=== PATIENT | male | born 1975 | race Caucasian/White ===

== ENCOUNTER 2017-09-04 06:56 | Day surgery (SDC) | payer BC ==
[2017-09-04] MEDS: NS 1,000 ML IV (07:00)
[2017-09-04] MEDS ORDERED: LIDOCAINE 2% INJ 100 MG/5 ML SYRINGE As Ordered (07:09)
[2017-09-04] MEDS ORDERED: PROPOFOL 200 MG/20 ML VIAL As Ordered ×2 (07:09→07:41)
== END 2017-09-04 08:22 | disposition home or self-care (01) ==
LOC: M OPP 06:56
DX: K62.5 Hemorrhage of anus and rectum (principal); K64.0 First degree hemorrhoids; I10 Essential (primary) hypertension; M54.5 Low back pain; Z87.891 Personal history of nicotine dependence
CPT/HCPCS: 45378

== ENCOUNTER → 2017-11-20 | Outpatient (REF) | payer BC ==
[2017-11-20 18:39] LABS: TESTOSTERONE 333 NG/DL (241-827)
== END ==
LOC: M LAB REF 16:56
DX: F52.21 Male erectile disorder (principal)
CPT/HCPCS: 84403

== ENCOUNTER → 2018-03-20 | Outpatient (CLI) | payer BC ==
--- NOTE | 2018-03-20 10:22 | REP ---
Chest two views HISTORY: Cough Comparison: None The lungs are clear. The heart is normal in size. The pulmonary vasculature is normal in appearance. The bony structure is intact. IMPRESSION: No acute disease. Electronically Signed by Grant Gonzales MD 03/20/2018 10:14 A
== END ==
LOC: M WUC 09:54
PROVIDERS: ATTEND Nurse Practitioner Family
DX: R05 Cough (principal)

== ENCOUNTER → 2018-09-04 | Outpatient (REF) | payer BC | LOC: M LAB REF 12:15 | PROVIDERS: ATTEND Nurse Practitioner Family | DX: L03.211 Cellulitis of face (principal) ==

== ENCOUNTER → 2019-01-23 | Outpatient (REF) | payer BC ==
[2019-01-23 16:36] LABS: MUCUS, URINE SMALL AMOUNT (NEGATIVE); WBC, URINE NONE SEEN /hpf (0-3)
== END ==
LOC: M LAB REF 16:12
PROVIDERS: ATTEND Nurse Practitioner Adult Health
DX: R31.9 Hematuria, unspecified (principal)

== ENCOUNTER 2019-08-15 18:21 | Emergency (ER) | payer BC ==
[~2019-08-15] VITALS: Ht 177.8 cm; Wt 85.4 kg
[2019-08-15] MEDS ORDERED: FAMO1TAB25 PO (18:28)
[2019-08-15] MEDS ORDERED: TIZA4TAB4 (18:28)
[2019-08-15] MEDS ORDERED: SOOL1CRE (18:28)
[2019-08-15] MEDS ORDERED: AMLO2.5T3 (18:28)
[2019-08-15] MEDS ORDERED: ONDANSETRON 4MG/2ML VIAL IV ONE (18:45)
[2019-08-15] MEDS ORDERED: NS 1,000 ML IV ONE (18:45)
[2019-08-15] MEDS ORDERED: KETOROLAC 30 MG/ML 1ML VIAL IV ONE (18:45)
[2019-08-15] MEDS ORDERED: PANTOPRAZOLE 40MG VIAL (C9113 PER 1) IV ONE (18:45)
[2019-08-15 19:02] LABS: BASO # 0.1 10^3/uL (0.0-0.2); BASO % 0.4 % (0.0-1.0); EOS # 0.1 10^3/uL (0.0-0.5); EOS % 1.2 % (0.0-3.0); HEMATOCRIT 47.2 % (42.0-52.0); HEMOGLOBIN 16.1 g/dl (13.5-17.5); LYMPH # 1.1 10^3/uL (1.5-5.0); LYMPH % 9.6 % (24.0-44.0); MEAN CORPUSCULAR HEMOGLOBIN 29.7 pg (27.0-33.0); MEAN CORPUSCULAR HGB CONC 34.1 g/dl (32.0-36.5); MEAN CORPUSCULAR VOLUME 86.9 fl (80.0-96.0); MONO # 0.7 10^3/uL (0.0-0.8); MONO % 6.4 % (0.0-5.0); NEUTROPHILS # 9.4 10^3/uL (1.5-8.5); NEUTROPHILS % 82.1 % (36.0-66.0); PLATELET COUNT, AUTOMATED 190 10^3/uL (150-450); RED BLOOD COUNT 5.43 10^6/uL (4.30-6.10); WHITE BLOOD COUNT 11.5 10^3/uL (4.0-10.0)
[2019-08-15 19:53] LABS: INR 1.12; PROTHROMBIN TIME 14.1 SECONDS (11.8-14.0)
[2019-08-15 19:54] LABS: PARTIAL THROMBOPLASTIN TIME 26.1 SECONDS (25.0-38.4)
[2019-08-15] MEDS ORDERED: MORPHINE 4 MG/ML 1ML VIAL/SYRINGE (J2270) IV ONE (20:00)
[2019-08-15 20:08] LABS: ALBUMIN 3.8 GM/DL (3.2-5.2); ALT/SGPT 30 U/L (12-78); BILIRUBIN,DIRECT 0.2 MG/DL (0.0-0.2); BILIRUBIN,TOTAL 0.7 MG/DL (0.2-1.0); BLOOD UREA NITROGEN 10 MG/DL (7-18); CALCIUM LEVEL 8.9 MG/DL (8.5-10.1); CARBON DIOXIDE LEVEL 27 MEQ/L (21-32); CHLORIDE LEVEL 107 MEQ/L (98-107); CK-MB VALUE MASS 3.1 NG/ML (<3.6); CPK CREATINE PHOSPHOKINASE 90 U/L (39-308); CREATININE FOR GFR 1.05 MG/DL (0.70-1.30); GLOMERULAR FILTRATION RATE > 60.0 (>60); GLUCOSE, FASTING 104 MG/DL (70-100); LIPASE 93 U/L (73-393); MB/CK RELATIVE INDEX 3.44 (< OR =4); POTASSIUM SERUM 3.9 MEQ/L (3.5-5.1); SODIUM LEVEL 140 MEQ/L (136-145); TOTAL PROTEIN 7.3 GM/DL (6.4-8.2); TROPONIN I < 0.02 NG/ML (< 0.10)
[2019-08-15] MEDS ORDERED: ISOVUE-370 76% 100ML VIAL As Ordered ONE (20:45)
[2019-08-15] MEDS ORDERED: GI COCKTAIL 50ML BTL(HYOSCYAMINE/MAALOX/LIDOCAINE VISCOUS)(1:3:1) PO ONE (20:45)
--- NOTE | 2019-08-15 21:17 | REPVR ---
PROCEDURE INFORMATION: Exam: CT Abdomen And Pelvis With Contrast Exam date and time: 08/15/2019 8:57 PM Age: 44 years old Clinical indication: Abdominal pain; Localized; Left upper quadrant (luq); Additional info: Left upper abdominal pain TECHNIQUE: Imaging protocol: Computed tomography of the abdomen and pelvis with intravenous contrast. Radiation optimization: All CT scans at this facility use at least one of these dose optimization techniques: automated exposure control; mA and/or kV adjustment per patient size (includes targeted exams where dose is matched to clinical indication); or iterative reconstruction. Contrast material: ISOVUE 370; Contrast volume: 100 ml; Contrast route: IV; COMPARISON: No relevant prior studies available. FINDINGS: Lungs: Minimal atelectasis or scar in the left posterior costophrenic sulcus. Liver: The liver attenuation is 76 Hounsfield units and the spleen is 111 Hounsfield units. Gallbladder and bile ducts: Normal. No calcified stones. No ductal dilation. Pancreas: Normal. No ductal dilation. Spleen: Normal. No splenomegaly. There is a splenic calcification. Adrenals: Normal. No mass. Kidneys and ureters: Normal. No hydronephrosis. Stomach and bowel: Borderline to mild small-bowel distention with fluid and air-fluid levels in the lumen. The distal ileum is contracted and findings are consistent with small-bowel obstruction. There is a tapering transition in the right lower quadrant with some fluid adjacent to the area of greatest transition which may reflect an adhesion or enteritis. Appendix: A normal appendix is seen. Intraperitoneal space: Mild free fluid in the pelvis with a Hounsfield measurement of 12. Vasculature: Unremarkable. No abdominal aortic aneurysm. Lymph nodes: Unremarkable. No enlarged lymph nodes. Bladder: Unremarkable as visualized. Reproductive: Unremarkable as visualized. Bones/joints: Unremarkable. No acute fracture. Soft tissues: Unremarkable. IMPRESSION: 1. Mild small-bowel obstruction with a tapering transition in the lower right abdomen with greatest adjacent fluid and induration in the segments of the right lower quadrant. Findings may reflect an adhesion although may reflect enteritis. 2. Mild free fluid in the pelvis which is nonspecific but unusual in a male and may be reactive. 3. Mild mild fatty infiltration of the liver. Electronically signed by: Rowdy Vasquez On 08/15/2019 21:17:51 PM
[2019-08-15] MEDS ORDERED: ONDA4TAB6 PO (23:07)
[2019-08-15] MEDS ORDERED: DICY10CA13 PO (23:07)
[2019-08-15 23:09] VITALS: BP 128/72
[2019-08-15] MEDS ORDERED: DICYCLOMINE 10 MG CAP PO ONE (23:15)
[2019-08-15] MEDS ORDERED: ONDANSETRON 4 MG ORAL DISINTEGRATING TAB PO ONE (23:15)
--- NOTE | 2019-08-16 07:22 | ED PDOC ---
Post-Departure Follow-Up dr ibarra faxed formal report of ct abd/p for fu Natalia Sanchez MD August 16, 2019 07:22
--- NOTE | 2019-08-16 07:42 | ER ---
DATE OF CONSULTATION: 08/15/2019 REASON FOR CONSULTATION: Abdominal pain with vomiting and reportedly abnormal CT scan. HISTORY OF THE PRESENT ILLNESS: The patient is a 44-year-old man who presented to the emergency department for evaluation of abdominal pain with some nausea and vomiting. He presented to the emergency department at approximately 6:20 on the evening of 08/15/2019. He reported that he had awakened at about 4 o'clock in the morning on 08/15/2019. He noted some abdominal discomfort particularly in the left upper quadrant as well as some reflux. He took some Tums and a famotidine and propped himself up with pillows. He was unable to go back to sleep. He noted during the morning and into the day that he had some occasional retching or dry heaves but never really had any productive vomiting. At about 4 o'clock he had some bites of a cookie, which was about his only food for the day. He did travel to [place] in hopes of helping a family member move but found he was too uncomfortable to participate. He apparently had a nap in the afternoon at about 1430 hours, but subsequently noted some retching and again some dry heaves. He continued to have some abdominal pain mostly in the left side of the abdomen and left upper quadrant. He got into the car to come to the emergency department and on the way to the emergency room (ER) he actually developed some nausea and had an episode of significant productive vomiting. In the emergency department, he noted persistent pain and aching in the upper abdomen. He was evaluated with some laboratory studies and then had a CT scan of the abdomen and pelvis obtained. The CT scan was interpreted by the radiologist as possibly showing some changes of small bowel obstruction and I was contacted to evaluate the patient regarding the possibility of a small bowel obstruction. The patient currently reports that his pain was about a 7-8/10 and it is now much reduced at about 2-3. He has had no vomiting since coming into the emergency department. He denies any history of fevers or chills. He reports he did take a temperature once at home and it was 97.3. He reports that no one else has been sick at home. He denies any unusual foods on Saturday. MEDICATIONS: The patient's usual medications include: - amlodipine 2.5 mg - tizanidine 4 mg by mouth as needed - ivermectin cream to the face as directed - Pepcid 10 mg by mouth daily as needed ALLERGIES: Reported to [facility]. Surgical history is significant for a lymph node biopsy of the right axilla 20 years ago. About 10 years ago he had an open left inguinal hernia repair with mesh combined with a repair of an umbilical hernia. His medical history is significant for some hypertension and a facial rash with a history of some reflux symptoms. Family history and social history are noncontributory. Review of systems reveals no history of chest pain or palpitations. He reports that he does not have prior similar symptoms. He has had no diagnosis of inflammatory bowel disease. He denies any history of peptic ulcer disease, hepatitis or pancreatitis. He denies any dysuria or hematuria. He had, had some soft bowel movements earlier in the day but no diarrhea and he has had no bleeding. Physical exam reveals a pleasant gentleman lying quietly on the stretcher in the emergency department. His most recent most recent vital signs showed him to be afebrile with a pulse of 58, respiratory rate of 18 and a blood pressure of 124/75. He is alert and oriented. He sounds slightly hoarse. Sclerae are anicteric. Skin is warm and dry. Heart exam shows a regular rate and rhythm and he is not tachycardiac. The lungs are clear to auscultation bilaterally. The patient is able to move from lying to sitting and sitting to lying position without apparent discomfort. The abdomen is flat. He has active bowel sounds in all four quadrants. The abdomen is nondistended. The abdomen is soft throughout and there is no appreciable tenderness throughout the abdomen. He has palpable posterior tibial pulses bilaterally with no peripheral edema. Laboratory studies showed a white count of 12, hemoglobin of 16, hematocrit of 47, and a platelet count of 190,000. Differential count showed 82% neutrophils, 10% lymphocytes, and 6% monocytes. His chemistry profile showed a sodium of 140, potassium 3.9, chloride 107, CO2 of 27, BUN of 10, creatinine 1, and a glucose of 104. Liver function tests were entirely normal. Cardiac injury profile was negative and his lipase was 93. Coags were unremarkable. Urinalysis showed 2+ blood on the dipstick but zero white cells and 2 red cells per high-power field on the microscopic. Serology showed a negative COVID-19. He had a CT scan of the abdomen and pelvis done with IV contrast. I reviewed the images and report personally. The radiologist had suggested that there was some "borderline to mild small bowel distension with fluid and air fluid levels in the lumen. The distal lumen is contracted and findings are consistent with small bowel obstruction." There was a small amount of free fluid noted in the pelvis as well. On my review of the imaging, he has some loops of small bowel that I would describe as full but not significantly distended or enlarged. These appear to be more proximal. More distal small bowel is smaller and decompressed. I do not see any inflammatory changes. I see no discrete obstructive pattern. His appendix is well seen and normal as is the gallbladder. IMPRESSION: The patient has had a 1 day history of abdominal discomfort with some frequent retching and finally some significant vomiting on the way to the hospital. He has been having bowel movements today. He is feeling much better currently. He has active bowel sounds with a soft abdomen that is nontender. His history is not consistent with a bowel obstruction and I think is more typical for some form of gastroenteritis. PLAN: I counseled the patient that I do not believe he requires hospital admission. If he would feel more comfortable staying at the hospital for a time to ensure that his symptoms have resolved I would be happy to place him on observation but I think he would be safe to go home. I discussed with him that he should probably just fast for a short time and then begin with some sips of clear liquids or ice chips and gradually advance his diet. I told him that if his pain recurs significantly he can return to the emergency department for admission and we can then monitor him in the hospital. I do not believe any outpatient followup is absolutely necessary unless his symptoms do not remit in the next day. RADHA
--- NOTE | 2019-08-16 21:03 | ECGEPIP ---
[facility] - ED Test Date: 2019-08-15 Pat Name: LANA DELACRUZ Department: Room: - Gender: Male Integrity Specialist: sasha : 1975 Requested By: ALISIA CERVANTES Order Number: [id number] Reading MD: Aby Rodriguez Measurements Intervals [place] Rate: 65 P: 64 AK: 178 QRS: 33 QRSD: 81 T: 51 QT: 383 QTc: 399 Interpretive Statements SINUS RHYTHM NSTTW abnormalities NO PRIOR Electronically Signed on 08-16-2019 21:03:36 EDT by Aby Rodriguez
== END 2019-08-15 23:17 | disposition home or self-care (01) ==
LOC: M ED 18:21
DX: R10.84 Generalized abdominal pain (principal); R11.2 Nausea with vomiting, unspecified; I10 Essential (primary) hypertension; Z79.899 Other long term (current) drug therapy; Z88.1 Allergy status to other antibiotic agents; Z88.2 Allergy status to sulfonamides
CPT/HCPCS: 74177; 80048; 80076; 81001; 82550; 82553; 83690; 84484; 85025; 85610; 85730; 93005; 96361; 96374; 96375; 99284; C9113; J1885; J2270; J2405; Q0162; Q9967; U0002

== ENCOUNTER → 2019-08-18 | Outpatient (CLI) | payer BC ==
[~2019-08-18] MED LIST: AMLO2.5T3; DICY10CA13 PO; FAMO1TAB25 PO; ONDA4TAB6 PO; SOOL1CRE; TIZA4TAB4
== END ==
LOC: M LAB 07:56
PROVIDERS: ATTEND Dermatology
DX: Z79.899 Other long term (current) drug therapy (principal)

== ENCOUNTER → 2019-09-17 | Outpatient (REF) | payer BC | LOC: M LAB REF 17:26 | PROVIDERS: ATTEND Dermatology | DX: L28.0 Lichen simplex chronicus (principal) ==

== ENCOUNTER → 2019-09-18 | Outpatient (CLI) | payer BC ==
[2019-09-18 17:12] LABS: BILIRUBIN,DIRECT 0.1 MG/DL (0.0-0.2); BILIRUBIN,TOTAL 0.3 MG/DL (0.2-1.0); TOTAL PROTEIN 7.4 GM/DL (6.4-8.2)
== END ==
LOC: M LAB 15:52
PROVIDERS: ATTEND Dermatology
DX: Z79.899 Other long term (current) drug therapy (principal)

== ENCOUNTER → 2019-10-22 | Outpatient (CLI) | payer BC ==
[2019-10-22 09:36] LABS: BILIRUBIN,DIRECT 0.1 MG/DL (0.0-0.2); BILIRUBIN,TOTAL 0.4 MG/DL (0.2-1.0); CHOLESTEROL RISK RATIO 4.975 (<5); TOTAL PROTEIN 7.3 GM/DL (6.4-8.2)
== END ==
LOC: M LAB 08:31
PROVIDERS: ATTEND Dermatology
DX: Z79.899 Other long term (current) drug therapy (principal)

== ENCOUNTER → 2020-01-15 | Outpatient (REF) | payer BC | LOC: M LAB REF 07:38 | PROVIDERS: ATTEND Anesthesiology | DX: Z20.828 Contact with and (suspected) exposure to other viral communicable diseases (principal) ==

== ENCOUNTER → 2020-04-19 | Outpatient (REF) | payer BC | LOC: M LAB REF 16:48 | PROVIDERS: ATTEND Family Medicine | DX: M25.50 Pain in unspecified joint (principal); R53.83 Other fatigue ==

== ENCOUNTER → 2020-04-26 | Outpatient (CLI) | payer SELFPAY | LOC: M LABSMTC 11:31 | PROVIDERS: ATTEND Pediatrics | DX: Z20.822 Contact with and (suspected) exposure to COVID-19 (principal) ==

== ENCOUNTER 2020-05-30 14:15 | Emergency (ER) | payer BC ==
[~2020-05-30] VITALS: Ht 177.8 cm; Wt 86.9 kg
--- NOTE | 2020-05-30 14:51 | REP ---
INDICATION: FALL, HEAD INJ COMPARISON: None. TECHNIQUE: Axial noncontrast images from the skull base to the vertex with coronal reformations. This CT examination was performed using the following dose reduction techniques: Automated exposure control, adjustment of mA and/or kv according to the patient's size, and use of iterative reconstruction technique. FINDINGS: The ventricles, sulci, and cisterns are normal in position and appearance. Cuevas-white differentiation is maintained. No acute intracranial hemorrhage, mass/mass effect, pathology or trauma/injury. No evidence for acute infarction. No extra-axial fluid collection. Calvarium is intact. Paranasal sinuses and mastoid air cells are clear. IMPRESSION: Normal noncontrast head CT. No evidence for acute intracranial pathology or trauma/injury. <Electronically signed by Jordin Denson > 05/30/20 [id number]
--- NOTE | 2020-05-30 14:52 | REP ---
INDICATION: FALL, HEAD INJ COMPARISON: None. TECHNIQUE: Axial noncontrast images from the skull base to the thoracic inlet with coronal and sagittal re-formations This CT examination was performed using the following dose reduction techniques: Automated exposure control, adjustment of mA and/or kv according to the patient's size, and use of iterative reconstruction technique. FINDINGS: Sagittal images demonstrate mild reversal of normal lordosis along with focal degenerative change at C5-6 including marginal spurring, endplate sclerosis, disc space narrowing and small posterior disc bulge. Remainder of the examination is essentially age-appropriate. There is no evidence for acute fracture/compression injury or subluxation. Spinal canal is patent. Posterior elements and spinous processes are intact. Paravertebral soft tissues are normal. IMPRESSION: 1. Mild reversal of normal lordosis along with focal degenerative changes at C5-6. 2. No acute fracture/compression injury or subluxation. <Electronically signed by Jordin Denson > 05/30/20 [id number]
[2020-05-30 15:37] VITALS: BP 184/115
[2020-05-30] MEDS ORDERED: TRAM50TA2 PO (15:42)
[2020-05-30] MEDS ORDERED: amLODIPine 5 MG TAB PO ONE (16:00)
[2020-05-30] MEDS ORDERED: PILL CUTTER 1 EACH XX PRN (16:20)
[2020-05-30 16:37] VITALS: BP 185/115
== END 2020-05-30 16:40 | disposition left against medical advice (07) ==
LOC: M ED 14:15
DX: S09.90XA Unspecified injury of head, initial encounter (principal); V00.211A Fall from ice-skates, initial encounter; Y92.330 Ice skating rink (indoor) (outdoor) as the place of occurrence of the external cause; Y93.21 Activity, ice skating; Y99.9 Unspecified external cause status; I10 Essential (primary) hypertension; M50.322 Other cervical disc degeneration at C5-C6 level; M50.20 Other cervical disc displacement, unspecified cervical region; M48.02 Spinal stenosis, cervical region; Z87.891 Personal history of nicotine dependence; Z88.2 Allergy status to sulfonamides; Z79.899 Other long term (current) drug therapy

== ENCOUNTER → 2020-07-21 | Outpatient (CLI) | payer BC ==
[~2020-07-21] MED LIST changes: +TRAM50TA2 PO
--- NOTE | 2020-07-22 13:10 | SLEEPHOME ---
DATE: 07/21/2020 ORDERED BY: Kat Chamberlain Diagnostic home sleep testing was performed due to concern for the obstructive sleep apnea syndrome in this patient with a history of excessive somnolence and nonrestorative sleep. For testing, a nocturnal T3 respiratory monitoring device was used. Continuous record was made of pulse, oxygen saturation, air flow, chest and abdominal strain, and body position. There was 11 hours and 59 minutes of data reviewed. There was 9 hours and 5 minutes marked as time in bed. During the interval marked time in bed, there were 64 respiratory events identified of 10 seconds in duration or greater for a respiratory event index of 7. The events were primarily obstructive. Baseline pulse rate 57. Pulse rate ranged 46-109. Baseline saturation 96%. Saturations fell to 87%. Testing was performed in both the supine and nonsupine positions. IMPRESSION: Abnormal home sleep testing with repetitive respiratory events and oxygen desaturations to 87% with a respiratory event index of 7 is consistent with the obstructive sleep apnea syndrome. RECOMMENDATION: The patient should be encouraged to undergo formal sleep evaluation.
== END ==
LOC: M SLEEP HO 10:22
PROVIDERS: ATTEND Nurse Practitioner Family
DX: R06.83 Snoring (principal)

== ENCOUNTER → 2020-07-21 | Outpatient (REF) | payer BC ==
[2020-07-21 12:18] LABS: APPEARANCE, URINE CLEAR (CLEAR); BACTERIA, URINE AUTO NEGATIVE (NEGATIVE); BILIRUBIN, URINE AUTO NEGATIVE (NEGATIVE); BLOOD, URINE BLOOD NEGATIVE (NEGATIVE); COLOR, URINE YELLOW (YELLOW); GLUCOSE, URINE (UA) AUTO NEGATIVE (NEGATIVE); KETONE, URINE AUTO NEGATIVE (NEGATIVE); LEUKOCYTE ESTERASE, URINE AUTO NEGATIVE (NEGATIVE); MUCUS, URINE SMALL (NEGATIVE); NITRITE, URINE AUTO NEGATIVE (NEGATIVE); PROTEIN, URINE AUTO NEGATIVE (NEGATIVE); RBC, URINE AUTO 5 /HPF (0-3); SPECIFIC GRAVITY URINE AUTO 1.013 (1.002-1.035); SQUAMOUS EPITHELIAL CELL UR AU 0 /HPF (0-6); UROBILINOGEN, URINE AUTO 0.2 mg/dL (0.0-2.0); WBC, URINE AUTO 0 /HPF (0-3)
== END ==
LOC: M SMT 11:56
PROVIDERS: ATTEND Nurse Practitioner Women's Health
DX: R31.29 Other microscopic hematuria (principal)

== ENCOUNTER → 2020-08-31 | Outpatient (CLI) | payer BC ==
--- NOTE | 2020-08-31 15:11 | REPVR ---
PROCEDURE INFORMATION: Exam: MR Lumbar Spine Without Contrast Exam date and time: 08/31/2020 12:38 PM Age: 45 years old Clinical indication: Low back pain; Additional info: Oth int disc deg R/O hnp stenosis TECHNIQUE: Imaging protocol: Multiplanar magnetic resonance images of the lumbar spine without intravenous contrast. COMPARISON: No relevant prior studies available. 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 There is minimal retrolisthesis of L3 on L4 with otherwise normal alignment. Spinal cord: The conus medullaris is normal appearance at the L1 level. L1-L2: No significant spinal canal stenosis or neural foraminal narrowing. L2-L3: No significant spinal canal stenosis or neural foraminal narrowing. L3-L4: There is a left paracentral disc herniation through an annular tear extending inferiorly from the disc space compressing the thecal sac and the exiting left L4 nerve root. It may also affect the right L4 nerve root. Series 6, image 14, series 3, image 7. Patent neural foramen. L4-L5: Diffusely bulging annulus with central subligamentous disc herniation with narrowing of the lateral recesses which may affect the exiting L5 nerve roots. Patent neural foramen. L5-S1: No significant spinal canal stenosis or neural foraminal narrowing. Soft tissues: Unremarkable. IMPRESSION: 1. Left paracentral disc herniation at the L3-L4 level likely affecting the exiting left L4 nerve root possibly the right L4 nerve root as well. 2. Small central subligamentous disc herniation at the L4-L5 level which may or may not affect the exiting L5 nerve roots. Electronically signed by: Radha Ny On 08/31/2020 15:11:18 PM
== END ==
LOC: M PLARAD 11:58
PROVIDERS: ATTEND Physician Assistant
DX: M51.36 Other intervertebral disc degeneration, lumbar region (principal); M51.26 Other intervertebral disc displacement, lumbar region

== ENCOUNTER → 2020-10-04 | Outpatient (CLI) | payer BC ==
[~2020-10-04] MED LIST changes: +FAMO10TA50 PO; -FAMO1TAB25 PO
--- NOTE | 2020-10-05 13:55 | SLEEPCENT ---
NOCTURNAL POLYSOMNOGRAPHY DATE: 10/04/2020 ORDERED BY: KAITLIN Locke Nocturnal polysomnography was performed for evaluation of sleep physiology in this patient with a clinical history suggesting the obstructive sleep apnea syndrome, supported by home testing revealing a respiratory event index of 7. 8 hours and 19 minutes of data were reviewed. There were 386.5 minutes of sleep identified. Sleep latency was mildly prolonged at 28 minutes. REM latency was similarly mildly prolonged at 106.5 minutes. Sleep architecture was fairly good. There were three REM cycles. Some fragmentation was seen early in the study. Overall sleep efficiency was 78.6%. The electrocardiogram showed an underlying sinus rhythm with an average heart rate of 48 beats per minute; rate range 40 to 80. EEG showed normal waveforms for wake and sleep. No focal events were identified. There were 48 respiratory events identified of 10 seconds in duration or greater for an apnea-hypopnea index of 7.5. The events were primarily obstructive, more frequent but not exclusive to stage REM, and not related to body posture. Arousals from respiratory events were seen 3.4 times per hour and oxygen desaturations were seen into the 80s. Remaining measures of sleep physiology were normal. IMPRESSION: Obstructive sleep apnea syndrome (G47.33), apnea-hypopnea index 7.5. RECOMMENDATION: The patient should be encouraged to return to the [facility] for [facility]. In the interim, alcohol and sedative avoidance should be practiced and caution exercised during the operation of motor vehicles.
== END ==
LOC: M SLEEP 20:00
PROVIDERS: ATTEND Nurse Practitioner Family
DX: R06.83 Snoring (principal)

== ENCOUNTER → 2020-10-28 | Outpatient (REF) | payer BC | LOC: M SMT 18:56 | PROVIDERS: ATTEND Urology | DX: R31.29 Other microscopic hematuria (principal) ==

== ENCOUNTER → 2020-12-02 | Outpatient (CLI) | payer BC ==
--- NOTE | 2020-12-06 18:06 | SLEEPCENT ---
DATE: 12/02/2020 ORDERED BY: Kat Chamberlain Nocturnal polysomnography was performed for the titration of pressure therapy in this patient with obstructive sleep apnea syndrome, apnea-hypopnea index 7.5. For testing, patient was fit with a ResMed F30 full-face mask of medium size. There was 4 cm of water pressure applied to the circuit, and the lights were extinguished. There was 8 hours and 8 minutes of data reviewed. There was 373.5 minutes of sleep identified. Sleep latency was mildly prolonged at 21 minutes. REM latency also prolonged at 148 minutes. Sleep architecture was good with three REM cycles. Overall sleep efficiency 77.3%. The electrocardiogram showed a sinus rhythm with average heart rate of 52 beats per minute. Rate ranged 45-80. EEG showed normal waveforms for wake and sleep. Respiratory events were fully palliated with CPAP at a pressure of 7, and remaining measures of sleep physiology were normal. IMPRESSION: Obstructive sleep apnea syndrome (G47.33). RECOMMENDATION: Nightly use of pressure therapy, 7 cm of water.
== END ==
LOC: M SLEEP 20:00
PROVIDERS: ATTEND Nurse Practitioner Family
DX: G47.33 Obstructive sleep apnea (adult) (pediatric) (principal)

== ENCOUNTER → 2021-09-01 | Outpatient (REF) | payer BC ==
[~2021-09-01] MED LIST changes: +TIZA10TA; -TIZA4TAB4
== END ==
LOC: M SFHCDERM 18:46
PROVIDERS: ATTEND Nurse Practitioner Family
DX: R21 Rash and other nonspecific skin eruption (principal)

== ENCOUNTER → 2022-09-28 | Outpatient (REF) | payer BC ==
[2022-09-28 17:12] LABS: APPEARANCE, URINE CLEAR (CLEAR); BACTERIA, URINE AUTO NEGATIVE (NEGATIVE); BILIRUBIN, URINE AUTO NEGATIVE (NEGATIVE); BLOOD, URINE BLOOD 1+ (NEGATIVE); COLOR, URINE COLORLESS (YELLOW); GLUCOSE, URINE (UA) AUTO NEGATIVE (NEGATIVE); KETONE, URINE AUTO NEGATIVE (NEGATIVE); LEUKOCYTE ESTERASE, URINE AUTO NEGATIVE (NEGATIVE); NITRITE, URINE AUTO NEGATIVE (NEGATIVE); PROTEIN, URINE AUTO NEGATIVE (NEGATIVE); RBC, URINE AUTO 0 /HPF (0-3); SPECIFIC GRAVITY URINE AUTO 1.002 (1.002-1.035); SQUAMOUS EPITHELIAL CELL UR AU 0 /HPF (0-6); UROBILINOGEN, URINE AUTO 0.2 mg/dL (0.0-2.0); WBC, URINE AUTO 0 /HPF (0-3)
== END ==
LOC: M LAB REF 16:16
PROVIDERS: ATTEND Family Medicine
DX: R31.9 Hematuria, unspecified (principal)

== ENCOUNTER → 2023-01-29 | Outpatient (CLI) | payer BC ==
[~2023-01-29] MED LIST changes: +DICY-61 PO; -DICY10CA13 PO
== END ==
LOC: M PAIN 13:45
PROVIDERS: ATTEND Anesthesiology
DX: M79.10 Myalgia, unspecified site (principal); M54.50 Low back pain, unspecified; M47.816 Spondylosis without myelopathy or radiculopathy, lumbar region; G89.29 Other chronic pain; Z87.891 Personal history of nicotine dependence; Z88.2 Allergy status to sulfonamides; Z79.891 Long term (current) use of opiate analgesic; Z79.899 Other long term (current) drug therapy

== ENCOUNTER → 2023-01-31 | Outpatient (CLI) | payer BC ==
[~2023-01-31] MED LIST changes: +NORCO, ANEXSIA 5/325MG TABLET (HYDROcodone/ACETAMINOPHEN) As Ordered ONE; +TRIAMCINOLONE ACETONIDE SUSP 40MG/ML 1ML VIAL As Ordered ONE; +diazePAM 5MG TABLET As Ordered ONE
== END ==
LOC: M PAIN 08:30
PROVIDERS: ATTEND Anesthesiology
DX: M79.18 Myalgia, other site (principal); G89.29 Other chronic pain; Z87.891 Personal history of nicotine dependence; Z88.2 Allergy status to sulfonamides; Z79.891 Long term (current) use of opiate analgesic; Z79.899 Other long term (current) drug therapy
CPT/HCPCS: 20552; J0665; J3301

== ENCOUNTER → 2023-03-20 | Outpatient (CLI) | payer BC ==
[~2023-03-20] MED LIST changes: -NORCO, ANEXSIA 5/325MG TABLET (HYDROcodone/ACETAMINOPHEN) As Ordered ONE; -TRIAMCINOLONE ACETONIDE SUSP 40MG/ML 1ML VIAL As Ordered ONE; -diazePAM 5MG TABLET As Ordered ONE
== END ==
LOC: M PAIN 14:00
PROVIDERS: ATTEND Anesthesiology
DX: M79.10 Myalgia, unspecified site (principal); M54.50 Low back pain, unspecified; G89.29 Other chronic pain; Z87.891 Personal history of nicotine dependence; Z88.2 Allergy status to sulfonamides; Z79.899 Other long term (current) drug therapy

== ENCOUNTER → 2023-04-29 | Outpatient (REF) | payer BC ==
[2023-04-29 14:07] LABS: APPEARANCE, URINE CLEAR (CLEAR); BACTERIA, URINE AUTO NEGATIVE (NEGATIVE); BILIRUBIN, URINE AUTO NEGATIVE (NEGATIVE); BLOOD, URINE BLOOD NEGATIVE (NEGATIVE); COLOR, URINE YELLOW (YELLOW); GLUCOSE, URINE (UA) AUTO NEGATIVE (NEGATIVE); KETONE, URINE AUTO NEGATIVE (NEGATIVE); LEUKOCYTE ESTERASE, URINE AUTO NEGATIVE (NEGATIVE); NITRITE, URINE AUTO NEGATIVE (NEGATIVE); PROTEIN, URINE AUTO NEGATIVE (NEGATIVE); RBC, URINE AUTO 3 /HPF (0-3); SPECIFIC GRAVITY URINE AUTO 1.012 (1.002-1.035); SQUAMOUS EPITHELIAL CELL UR AU 0 /HPF (0-6); UROBILINOGEN, URINE AUTO 0.2 mg/dL (0.0-2.0); WBC, URINE AUTO 1 /HPF (0-3)
== END ==
LOC: M LAB REF 12:11
PROVIDERS: ATTEND Family Medicine
DX: M54.50 Low back pain, unspecified (principal); R31.9 Hematuria, unspecified

== ENCOUNTER → 2023-05-08 | Outpatient (CLI) | payer BC | LOC: M PLAIMG 06:55 | PROVIDERS: ATTEND Physician Assistant | DX: M51.36 Other intervertebral disc degeneration, lumbar region (principal); M51.26 Other intervertebral disc displacement, lumbar region ==

== ENCOUNTER → 2023-05-23 | Outpatient (CLI) | payer BC ==
[~2023-05-23] MED LIST changes: +NORCO, ANEXSIA 5/325MG TABLET (HYDROcodone/ACETAMINOPHEN) As Ordered ONE; +TRIAMCINOLONE ACETONIDE SUSP 40MG/ML 1ML VIAL As Ordered ONE; +diazePAM 5MG TABLET As Ordered ONE
== END ==
LOC: M PAIN 08:15
PROVIDERS: ATTEND Anesthesiology
DX: M79.18 Myalgia, other site (principal); M54.50 Low back pain, unspecified; G47.30 Sleep apnea, unspecified; I10 Essential (primary) hypertension; Z87.891 Personal history of nicotine dependence; Z79.2 Long term (current) use of antibiotics; Z79.891 Long term (current) use of opiate analgesic; Z79.899 Other long term (current) drug therapy; Z88.2 Allergy status to sulfonamides
CPT/HCPCS: 20552; J0665; J3301

== ENCOUNTER → 2023-06-19 | Outpatient (CLI) | payer BC ==
[~2023-06-19] MED LIST changes: -NORCO, ANEXSIA 5/325MG TABLET (HYDROcodone/ACETAMINOPHEN) As Ordered ONE; -TRIAMCINOLONE ACETONIDE SUSP 40MG/ML 1ML VIAL As Ordered ONE; -diazePAM 5MG TABLET As Ordered ONE
== END ==
LOC: M PAIN 17:00
PROVIDERS: ATTEND Anesthesiology
DX: M79.10 Myalgia, unspecified site (principal); M54.50 Low back pain, unspecified; I10 Essential (primary) hypertension; Z79.891 Long term (current) use of opiate analgesic; Z79.899 Other long term (current) drug therapy; Z88.2 Allergy status to sulfonamides; Z87.891 Personal history of nicotine dependence

== ENCOUNTER 2023-08-05 20:08 | Emergency (ER) | payer OTHER, BC ==
[~2023-08-05] VITALS: Ht 176.5 cm; Wt 81.8 kg
[2023-08-05 21:07] VITALS: BP 144/86; TEMP 98.2; O2SAT 97
[2023-08-05 21:09] LABS: BASO % 0.6 % (0.0-1.0); EOS # 0.1 10^3/uL (0.0-0.5); HEMATOCRIT 40.6 % (42.0-52.0); HEMOGLOBIN 14.4 g/dl (13.5-17.5); LYMPH # 1.6 10^3/uL (1.5-5.0); LYMPH % 22.3 % (24.0-44.0); MEAN CORPUSCULAR HEMOGLOBIN 30.3 pg (27.0-33.0); MEAN CORPUSCULAR HGB CONC 35.5 g/dl (32.0-36.5); MEAN CORPUSCULAR VOLUME 85.3 fl (80.0-96.0); MONO # 0.6 10^3/uL (0.0-0.8); MONO % 7.6 % (2.0-8.0); NEUTROPHILS # 4.9 10^3/uL (1.5-8.5); NEUTROPHILS % 68.2 % (36.0-66.0); PLATELET COUNT, AUTOMATED 221 10^3/uL (150-450); RED BLOOD COUNT 4.76 10^6/uL (4.30-6.10); WHITE BLOOD COUNT 7.2 10^3/uL (4.0-10.0)
[2023-08-05 21:41] LABS: ALKALINE PHOSPHATASE 74 U/L (46-116); ALT/SGPT 20 U/L (7.0-40); AST/SGOT 17 U/L (<34); BILIRUBIN,TOTAL 0.4 MG/DL (0.3-1.2); BLOOD UREA NITROGEN 19 MG/DL (9-23); CALCIUM LEVEL 9.9 MG/DL (8.5-10.1); CARBON DIOXIDE LEVEL 25 MMOL/L (20-31); CHLORIDE LEVEL 106 MMOL/L (98-107); CREATININE FOR GFR 0.97 MG/DL (0.70-1.30); GLOMERULAR FILTRATION RATE > 60.0 (>56); GLUCOSE, FASTING 120 MG/DL (60-100); POTASSIUM SERUM 3.8 MMOL/L (3.5-5.1); SODIUM LEVEL 139 MMOL/L (136-145); TOTAL PROTEIN 7.5 G/DL (5.7-8.2)
[2023-08-05 21:42] LABS: HEPATITIS B SURFACE ANTIBODY POSITIVE (POSITIVE)
[2023-08-05 21:54] LABS: HEPATITIS B SURFACE ANTIGEN NEGATIVE (NEGATIVE)
[2023-08-05 22:08] LABS: HIV SCREEN CENTAUR EXPOSED NEGATIVE (NEGATIVE)
== END 2023-08-05 22:13 | disposition home or self-care (01) ==
LOC: M ED 20:08
DX: S61.230A Puncture wound without foreign body of right index finger without damage to nail, initial encounter (principal); W46.0XXA Contact with hypodermic needle, initial encounter; Z77.21 Contact with and (suspected) exposure to potentially hazardous body fluids; I10 Essential (primary) hypertension; M54.50 Low back pain, unspecified; Y92.234 Operating room of hospital as the place of occurrence of the external cause; Y93.89 Activity, other specified; Y99.0 Civilian activity done for income or pay; Z88.2 Allergy status to sulfonamides; Z79.899 Other long term (current) drug therapy

== ENCOUNTER → 2023-09-05 | Outpatient (CLI) | payer OTHER, BC ==
[~2023-09-05] MED LIST changes: +ONDA-282 PO; -ONDA4TAB6 PO
[2023-09-05 08:07] LABS: ALBUMIN 4.1 G/DL (3.2-5.2); ALKALINE PHOSPHATASE 77 U/L (46-116); ALT/SGPT 26 U/L (7.0-40); AST/SGOT 16 U/L (<34); BILIRUBIN,DIRECT 0.1 MG/DL (<0.4); BILIRUBIN,TOTAL 0.5 MG/DL (0.3-1.2); TOTAL PROTEIN 7.1 G/DL (5.7-8.2)
[2023-09-05 08:27] LABS: HEPATITIS B SURFACE ANTIGEN NEGATIVE (NEGATIVE)
[2023-09-05 08:39] LABS: HIV 1&2 SCREEN NEGATIVE (NEGATIVE)
[2023-09-05 08:47] LABS: HEPATITIS C VIRUS ABY INDEX 0.22 INDEX (<0.8)
[2023-09-06 14:09] LABS: HEPATITIS B CORE ANTIBODY IGG Negative (Negative); HEPATITIS C QUANTITATION HCV Not Detected IU/mL (.)
== END ==
LOC: M LAB 07:05
PROVIDERS: ATTEND Internal Medicine Infectious Disease
DX: Z20.5 Contact with and (suspected) exposure to viral hepatitis (principal); W46.0XXA Contact with hypodermic needle, initial encounter

== ENCOUNTER → 2024-02-13 | Outpatient (CLI) | payer OTHER ==
[2024-02-13 13:45] LABS: ALBUMIN 4.1 G/DL (3.2-5.2); ALKALINE PHOSPHATASE 79 U/L (40-129); ALT/SGPT 21 U/L (7.0-40); AST/SGOT 20 U/L (<34); BILIRUBIN,DIRECT 0.1 MG/DL (<0.4); BILIRUBIN,TOTAL 0.5 MG/DL (0.3-1.2); TOTAL PROTEIN 7.8 G/DL (5.7-8.2)
[2024-02-13 14:16] LABS: HIV 1&2 SCREEN NEGATIVE (NEGATIVE)
[2024-02-13 14:24] LABS: HEPATITIS C VIRUS ABY INDEX 0.07 INDEX (<0.8)
[2024-02-14 19:41] LABS: HCV RNA QUANTITATION <15 NOT DETECTED IU/mL (NOT DETECTED); HCV RNA log10 <1.18 NOT DETECTED Log IU/mL (NOT DETECTED)
== END ==
LOC: M LAB 12:24
PROVIDERS: ATTEND Internal Medicine Infectious Disease
DX: Z20.5 Contact with and (suspected) exposure to viral hepatitis (principal)

== ENCOUNTER → 2025-01-13 | Outpatient (REF) | payer OTHER, BC | LOC: M LAB REF 12:12 | PROVIDERS: ATTEND Family Medicine | DX: E07.9 Disorder of thyroid, unspecified (principal) ==

== ENCOUNTER 2025-03-07 10:33 | Emergency (ER) | payer BC, OTHER ==
[~2025-03-07] VITALS: Ht 176.5 cm; Wt 83.0 kg
[2025-03-07 10:37] VITALS: BP 160/80; O2SAT 99
[2025-03-07 10:40] VITALS: TEMP 97.8
[2025-03-07] MEDS: TETRACAINE 0.5% OPHTH SOLN 4ML OD ONE (11:57)
[2025-03-07] MEDS: FLUORESCEIN OPHTH 1 MG STRIP OD ONE (11:57)
[2025-03-07] MEDS ORDERED: NS 500 ML IV ONE (12:10)
[2025-03-07] MEDS ORDERED: ACUL0.5S OP (12:51)
== END 2025-03-07 12:59 | disposition home or self-care (01) ==
LOC: M ED 10:33
DX: H57.8A1 Foreign body sensation, right eye (principal); I10 Essential (primary) hypertension; Z88.2 Allergy status to sulfonamides; Z79.899 Other long term (current) drug therapy